=== PATIENT | male | born 2000 | race American Indian/Alaskan Native ===

== ENCOUNTER 2020-08-25 17:42 | Emergency (ER) | payer SELFPAY ==
[2020-08-25 17:57] VITALS: BP 152/83
[2020-08-25 20:21] LABS: Basophils % (Auto) 0.6 % (0.0-1.8); Eosinophils # (Auto) 0.2 K/mm3 (0.0-0.4); Eosinophils % (Auto) 2.1 % (0.0-4.3); Hematocrit 41.9 % (35.5-45.6); Hemoglobin 13.8 gm/dl (11.8-15.2); Lymphocytes # (Auto) 1.8 K/mm3 (1.2-5.4); Lymphocytes % (Auto) 24.9 % (13.4-35.0); Mean Corpuscular HGB Conc 33 % (32-34); Mean Corpuscular Volume 82 fl (84-94); Monocytes # (Auto) 0.7 K/mm3 (0.0-0.8); Platelet Count 186 K/mm3 (140-440); Red Cell Distribution Width 14.3 % (13.2-15.2)
[2020-08-25 20:29] LABS: Alanine Aminotransferase 100 units/L (7-56); Albumin 4.7 g/dL (3.9-5); Blood Urea Nitrogen 11 mg/dL (9-20); Calcium 9.9 mg/dL (8.4-10.2); Hemolysis Index 13
[2020-08-25 20:32] LABS: BUN/Creatinine Ratio 16
--- NOTE | 2020-08-25 20:52 | Emergency Department Report ---
ED General Adult HPI - General Chief complaint: Animal Bite Stated complaint: FAST HEART BEAT, BUG BITE Time Seen by Provider: 08/25/20 19:54 Source: patient Mode of arrival: Ambulatory Limitations: No Limitations - History of Present Illness Initial comments: Patient is a 19-year-old male who presents emergency room with complaints of palpitations and lightheadedness that began a week ago. He states that he feels like his heart races intermittently. he states he feels it occasionally when he lays down or when he walks around. He denies any chest pain, shortness of breath, nausea, vomiting, diarrhea, fever, cough, leg swelling. No past medical history. No allergies to medications. He denies any heavy caffeine use, he states that he occasionally drinks tea. He denies any alcohol or drug use. He states he is a non-smoker. He denies any increased stress or anxiety. Severity scale (0 -10): 0 - Related Data Previous Rx's Medication Instructions Recorded Last Taken Type Hyoscyamine Subl [Levsin Sl 0.125 0.125 mg SL Q6HR PRN #14 tab 08/21/20 Unknown Rx TAB] Allergies Allergy/AdvReac Type Severity Reaction Status Date / Time No Known Allergies Allergy Unverified 08/21/20 15:04 ED Review of Systems ROS: Stated complaint: FAST HEART BEAT, BUG BITE Other details as noted in HPI Comment: All other systems reviewed and negative ED Past Medical Hx - Past Medical History Previous Medical History?: No - Surgical History Past Surgical History?: Yes Additional Surgical History: Right arm - Social History Smoking Status: Never Smoker Substance Use Type: None - Medications Home Medications: Home Medications Medication Instructions Recorded Confirmed Last Taken Type Hyoscyamine Subl [Levsin Sl 0.125 0.125 mg SL Q6HR PRN #14 tab 08/21/20 Unknown Rx TAB] ED Physical Exam - General Limitations: No Limitations General appearance: alert, in no apparent distress - Head Head exam: Present: atraumatic, normocephalic - Eye Eye exam: Present: normal appearance - ENT ENT exam: Present: mucous membranes moist - Respiratory Respiratory exam: Present: normal lung sounds bilaterally. Absent: respiratory distress, wheezes, rales, rhonchi, stridor, chest wall tenderness, accessory muscle use, decreased breath sounds, prolonged expiratory - Cardiovascular Cardiovascular Exam: Present: regular rate, normal rhythm, normal heart sounds. Absent: systolic murmur, diastolic murmur, rubs, gallop - Neurological Exam Neurological exam: Present: alert, oriented X3 - Psychiatric Psychiatric exam: Present: normal affect, normal mood - Skin Skin exam: Present: warm, dry, intact ED Course Vital Signs 08/25/20 08/25/20 17:56 21:06 Temperature 98.7 F Pulse Rate 94 H 74 Respiratory 18 16 Rate Blood Pressure 152/83 [Right] O2 Sat by Pulse 94 99 Oximetry ED Medical Decision Making - Lab Data Result diagrams: 08/25/20 20:08 08/25/20 20:08 Lab Results 08/25/20 08/25/20 08/25/20 Range/Units 20:08 20:08 20:08 WBC 7.3 (4.5-11.0) K/mm3 RBC 5.10 H (3.65-5.03) M/mm3 Hgb 13.8 (11.8-15.2) gm/dl Hct 41.9 (35.5-45.6) % MCV 82 L (84-94) fl MCH 27 L (28-32) pg MCHC 33 (32-34) % RDW 14.3 (13.2-15.2) % Plt Count 186 (140-440) K/mm3 Lymph % (Auto) 24.9 (13.4-35.0) % [place] % (Auto) 9.0 H (0.0-7.3) % Eos % (Auto) 2.1 (0.0-4.3) % Baso % (Auto) 0.6 (0.0-1.8) % Lymph # (Auto) 1.8 (1.2-5.4) K/mm3 [place] # (Auto) 0.7 (0.0-0.8) K/mm3 Eos # (Auto) 0.2 (0.0-0.4) K/mm3 Baso # (Auto) 0.0 (0.0-0.1) K/mm3 Seg Neutrophils % 63.4 (40.0-70.0) % Seg Neutrophils # 4.6 (1.8-7.7) K/mm3 Sodium 142 (137-145) mmol/L Potassium 4.2 (3.6-5.0) mmol/L Chloride 102.2 (98-107) mmol/L Carbon Dioxide 26 (22-30) mmol/L Anion Gap 18 mmol/L BUN 11 (9-20) mg/dL Creatinine 0.7 L (0.8-1.3) mg/dL Estimated GFR > 60 ml/min BUN/Creatinine Ratio 16 % Glucose 102 H (75-100) mg/dL Calcium 9.9 (8.4-10.2) mg/dL Magnesium 2.20 (1.7-2.3) mg/dL Total Bilirubin 0.50 (0.1-1.2) mg/dL AST 40 (5-40) units/L ALT 100 H (7-56) units/L Alkaline Phosphatase 61 (35-129) units/L Total Creatine Kinase 276 H (55-170) units/L Total Protein 8.2 (6.3-8.2) g/dL Albumin 4.7 (3.9-5) g/dL Albumin/Globulin Ratio 1.3 % TSH 1.680 (0.270-4.200) mlU/mL Vital Signs 08/25/20 08/25/20 17:56 21:06 Temperature 98.7 F Pulse Rate 94 H 74 Respiratory 18 16 Rate Blood Pressure 152/83 [Right] O2 Sat by Pulse 94 99 Oximetry - EKG Data EKG shows normal: sinus rhythm, axis, intervals, QRS complexes, ST-T waves Rate: normal - Medical Decision Making Patient is a 19-year-old male who presents emergency room with complaints of palpitations and lightheadedness that began a week ago. He states that he feels like his heart races intermittently. he states he feels it occasionally when he lays down or when he walks around. He denies any chest pain, shortness of breath, nausea, vomiting, diarrhea, fever, cough, leg swelling. No past medical history. No allergies to medications. He denies any heavy caffeine use, he states that he occasionally drinks tea. He denies any alcohol or drug use. He states he is a non-smoker. He denies any increased stress or anxiety. No ab normality on physical examination as documented in chart. Vitals are normal. Orthostatic vital signs are normal. EKG is within normal limits no signs of arrhythmia. Labs are stable. Mildly increased ALT, other LFTs are normal, patient has had elevation in his ALT during a previous visit. Patient states that he has recently increased his salt intake and believes this may be the cause for his symptoms. Discussed with patient to lower his salt intake. Advised patient Please increase your water intake. Please avoid any caffeine use which includes sodas, tea, energy drinks. Please avoid any drug or alcohol use. Follow-up with a primary care doctor. Return to emergency room for any new or worsening symptoms. - Differential Diagnosis anxiety, anemia, VENKAT, rhabdo, arrhythmia, electrolyte disturbance Critical care attestation.: If time is entered above; I have spent that time in minutes in the direct care of this critically ill patient, excluding procedure time. ED Disposition Clinical Impression: Palpitations, Lightheaded Disposition: DC-01 TO HOME OR SELFCARE Is pt being admited?: No Does the pt Need Aspirin: No Condition: Stable Instructions: Palpitations (ED), Lightheadedness (ED) Additional Instructions: Please increase your water intake. Please avoid any caffeine use which includes sodas, tea, energy drinks. Please avoid any drug or alcohol use. Follow-up with a primary care doctor. Return to emergency room for any new or worsening symptoms. Referrals: PRIMARY CAREMD [Primary Care Provider] - 2-3 Days GEORGI COPE MD [Staff Physician] - 2-3 Days Time of Disposition: 20:52 Print Language: SWAZI
== END 2020-08-25 21:16 | disposition home or self-care (01) ==
LOC: ED 17:42
DX: R00.2 Palpitations (principal); R42 Dizziness and giddiness; Z79.899 Other long term (current) drug therapy; Z98.890 Other specified postprocedural states
CPT/HCPCS: 36415; 80053; 82550; 83735; 84443; 85025; 93005